=== PATIENT | female | born 1975 | race Caucasian/White ===

== ENCOUNTER 2017-09-01 17:53 | Emergency (ER) | payer BC ==
[2017-09-01] MEDS ORDERED: LORAZEPAM 1 MG TABLET PO ONE (18:54)
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
[2017-09-01 20:06] VITALS: BP 129/71
== END 2017-09-01 19:55 | disposition home or self-care (01) ==
LOC: ER 17:53
DX: F19.939 Other psychoactive substance use, unspecified with withdrawal, unspecified (principal); F41.9 Anxiety disorder, unspecified; F17.200 Nicotine dependence, unspecified, uncomplicated
CPT/HCPCS: 99283